=== PATIENT | male | born 1950 | race Caucasian/White ===

== ENCOUNTER 2024-08-02 15:34 | Emergency (ER) | payer MEDICARE, BC ==
[2024-08-02] MEDS ORDERED: Sodium Chloride 0.9% 10 ML Syringe FLUSH PRN (16:05)
[2024-08-02] MEDS: Meclizine 25 MG Tab PO ONE (16:27)
[2024-08-02] MEDS: Sodium Chloride 0.9% 1,000 ML IV SCH (16:28)
[2024-08-02 16:30] LABS: BASOPHILS ABSOLUTE AUTO 0.1 K/mm3 (0.0-0.2); EOSINOPHILS ABSOLUTE AUTO 0.5 K/mm3 (0.0-0.4); EOSINOPHILS PERCENT AUTO 5.2 % (0.0-6.0); HEMATOCRIT 47.5 % (42.0-52.0); HEMOGLOBIN 15.9 gm/dl (14.0-18.0); IMMATURE GRAN ABSOLUTE AUTO 0.03 K/mm3 (0.00-0.05); IMMATURE GRAN PERCENT AUTO 0.3 % (0.0-0.4); LYMPHOCYTES ABSOLUTE AUTO 1.4 K/mm3 (1.0-4.8); LYMPHOCYTES PERCENT AUTO 15.2 % (24.0-44.0); MEAN CORPUSCULAR HEMOGLOBIN 30.6 pg (28.0-32.0); MEAN CORPUSCULAR HGB CONC 33.5 g/dl (32.0-36.0); MEAN CORPUSCULAR VOLUME 91.3 fl (83.0-99.0); NEUTROPHILS ABSOLUTE AUTO 6.1 K/mm3 (1.8-7.7); NEUTROPHILS PERCENT AUTO 67.3 % (41.0-71.0); PLATELET COUNT,PLT 259 K/mm3 (150-400); WHITE BLOOD CELL COUNT,WBC 9.12 K/mm3 (3.9-11.3)
[2024-08-02 16:48] LABS: INR 1.02; PROTHROMBIN TIME 10.8 SECONDS (9.7-12.0)
[2024-08-02 16:53] LABS: A/G RATIO 1.1 (1-2); ALBUMIN 3.4 g/dl (3.4-5.0); ANION GAP 13.9 (5-15); BILIRUBIN TOTAL 0.4 mg/dL (0.2-1.0); CALCIUM 9.2 mg/dL (8.5-10.1); EST CRCL DRUG DOSING (CG) 56.38 mL/min; PROTEIN TOTAL,TP 6.5 g/dl (6.4-8.2)
[2024-08-02 16:55] LABS: POTASSIUM,K 3.9 mEq/L (3.5-5.1)
[2024-08-02 18:29] VITALS: BP 149/73; PULSE 67
== END 2024-08-02 18:28 | disposition home or self-care (01) ==
LOC: JD.ED 15:34
DX: R42 Dizziness and giddiness (principal); E78.00 Pure hypercholesterolemia, unspecified; K21.9 Gastro-esophageal reflux disease without esophagitis; E66.9 Obesity, unspecified; Z68.33 Body mass index [BMI] 33.0-33.9, adult; E11.9 Type 2 diabetes mellitus without complications; Z79.899 Other long term (current) drug therapy; Z88.0 Allergy status to penicillin; Z88.8 Allergy status to other drugs, medicaments and biological substances
CPT/HCPCS: 36415; 70450; 71045; 80053; 82947; 84484; 85025; 85610; 93005; 99284; A9270; J7030

== ENCOUNTER 2025-01-30 06:00 | Day surgery (SDC) | payer BC, MEDICARE, OTHER ==
[~2025-01-30 06:00] MED LIST: Sodium Chloride 0.9% 10 ML Syringe FLUSH PRN; Sodium Chloride 0.9% 10 ML Syringe FLUSH SCH
[2025-01-30] MEDS: Lactated Ringers 1,000 ML IV SCH (06:10)
[2025-01-30] MEDS: Pregabalin 25 MG Cap PO ONE (06:18)
[2025-01-30] MEDS: oxyCODONE ER 10 MG TAB.ER PO ONE (06:18)
[2025-01-30] MEDS: Acetaminophen 325 MG Tab PO ONE (06:19)
[2025-01-30] MEDS ORDERED: Midazolam 1 MG/ML 2 ML SDV ONE (06:31)
[2025-01-30] MEDS ORDERED: propofoL 500 MG/50 ML 50 ML ONE (06:31)
[2025-01-30] MEDS ORDERED: Ondansetron 4 MG/2 ML SDV ONE (06:36)
[2025-01-30] MEDS ORDERED: ceFAZolin 2 GM Vial ONE (07:03)
[2025-01-30] MEDS ORDERED: Phenylephrine 1% 10 MG/ML SDV ONE (07:05)
[2025-01-30] MEDS ORDERED: Lactated Ringers 1,000 ML ONE (07:15)
[2025-01-30] MEDS ORDERED: Lidocaine 1% 5 ML VIAL ONE (07:19)
[2025-01-30] MEDS ORDERED: ePHEDrine 50 MG/ML SDV ONE (07:20)
[2025-01-30] MEDS ORDERED: Ketorolac 30 MG/ML SDV IVPUSH PRN (07:35)
[2025-01-30] MEDS ORDERED: fentaNYL 100 MCG/2 ML SDV IVPUSH PRN (07:35)
[2025-01-30] MEDS ORDERED: Ondansetron 4 MG/2 ML SDV IVPUSH PRN (07:35)
[2025-01-30] MEDS ORDERED: HYDROmorphone 0.5 MG/0.5 ML Syringe IVPUSH PRN (07:35)
[2025-01-30] MEDS ORDERED: Propofol 200 MG/20 ML SDV ONE (08:05)
[2025-01-30] MEDS: Morphine 8 MG, EPINEPHrine 0.3 MG, Cefuroxime 750 MG, Ketorolac 30 MG, Sodium Chloride ... PRN (08:05)
[2025-01-30] MEDS: Tranexamic Acid 1,000 MG/10 ML Vial ONE (08:05)
[2025-01-30] MEDS: VANCOmycin 1 GM SDV ONE (08:05)
[2025-01-30 12:18] VITALS: BP 124/69; PULSE 97
[2025-01-30] MEDS: oxyCODONE 5 MG Tab PO PRN (12:20)
== END 2025-01-30 13:00 | disposition home or self-care (01) ==
LOC: JD.SDS 06:00
PROVIDERS: ATTEND Orthopaedic Surgery
DX: M16.12 Unilateral primary osteoarthritis, left hip (principal); E11.9 Type 2 diabetes mellitus without complications; E78.00 Pure hypercholesterolemia, unspecified; E66.9 Obesity, unspecified; Z88.0 Allergy status to penicillin; Z88.8 Allergy status to other drugs, medicaments and biological substances; Z68.30 Body mass index [BMI] 30.0-30.9, adult; Z79.899 Other long term (current) drug therapy
CPT/HCPCS: 0055T; 27130; 73501; 82947; 97110; 97116; 97162; A9270; C1713; C1776; J0171; J0690; J0697; J1885; J2003; J2250; J2272; J2371; J2405; J2704; J7120; 01214; 99100; J3490

== ENCOUNTER → 2025-07-03 | Day surgery (SDC) | payer OTHER ==
[~2025-07-03] MED LIST changes: +Lactated Ringers 1,000 ML ONE; +Lidocaine 1% 4 ML ONE; +Midazolam 1 MG/ML 2 ML SDV ONE; +Ondansetron 4 MG/2 ML SDV IVPUSH PRN; +Ondansetron 4 MG/2 ML SDV ONE; +Propofol 200 MG/20 ML SDV ONE; +Ropivacaine 0.5% 5 MG/ML 30 ML SDV ONE; +ePHEDrine 50 MG/ML SDV ONE; +fentaNYL 100 MCG/2 ML SDV IVPUSH PRN; +fentaNYL 100 MCG/2 ML SDV ONE
[2025-07-03] MEDS: Lactated Ringers 1,000 ML IV SCH (10:00)
[2025-07-03] MEDS: oxyCODONE ER 10 MG TAB.ER PO SCH (10:04)
[2025-07-03 15:23] VITALS: BP 149/70; PULSE 70
== END | disposition home or self-care (01) ==
LOC: JD.SDS 09:22
PROVIDERS: ATTEND Orthopaedic Surgery
DX: M75.101 Unspecified rotator cuff tear or rupture of right shoulder, not specified as traumatic (principal); M12.811 Other specific arthropathies, not elsewhere classified, right shoulder; E11.9 Type 2 diabetes mellitus without complications; Z79.82 Long term (current) use of aspirin; Z79.899 Other long term (current) drug therapy; Z88.0 Allergy status to penicillin; Z87.891 Personal history of nicotine dependence
CPT/HCPCS: 23472; 64415; 76000; 97161; 97530; A9270; C1713; C1769; C1776; J0690; J2003; J2250; J2405; J2704; J2795; J3010; J3373; J7120; J3490

== ENCOUNTER 2025-10-09 06:00 | Day surgery (SDC) | payer OTHER ==
[~2025-10-09 06:00] MED LIST changes: -Lactated Ringers 1,000 ML ONE; -Lidocaine 1% 4 ML ONE; -Midazolam 1 MG/ML 2 ML SDV ONE; -Ondansetron 4 MG/2 ML SDV IVPUSH PRN; -Ondansetron 4 MG/2 ML SDV ONE; -Propofol 200 MG/20 ML SDV ONE; -Ropivacaine 0.5% 5 MG/ML 30 ML SDV ONE; -ePHEDrine 50 MG/ML SDV ONE; -fentaNYL 100 MCG/2 ML SDV IVPUSH PRN; -fentaNYL 100 MCG/2 ML SDV ONE
[2025-10-09] MEDS: Lactated Ringers 1,000 ML IV SCH (06:00)
[2025-10-09] MEDS ORDERED: Propofol 200 MG/20 ML SDV ONE (06:17)
[2025-10-09] MEDS ORDERED: dexmedeTOMIDine HCl 200 MCG/2 ML SDV ONE (06:17)
[2025-10-09 07:47] VITALS: BP 124/74; PULSE 77
== END 2025-10-09 07:45 | disposition home or self-care (01) ==
LOC: JD.SDS 06:00
PROVIDERS: ATTEND Orthopaedic Surgery
DX: G56.01 Carpal tunnel syndrome, right upper limb (principal); I10 Essential (primary) hypertension; E11.9 Type 2 diabetes mellitus without complications; E78.5 Hyperlipidemia, unspecified; G47.33 Obstructive sleep apnea (adult) (pediatric); Z79.899 Other long term (current) drug therapy
CPT/HCPCS: 64721; J0665; J0690; J2003; J2704; J7120